=== PATIENT | male | born 1990 | race African-American/Black ===

== ENCOUNTER 2016-03-28 03:11 | Inpatient (IN) | payer SELFPAY ==
[2016-03-28] VITALS (9 sets, daily range): BP systolic 114–145; BP diastolic 52–73
[~2016-03-28] VITALS: Ht 190.5 cm; Wt 117.9 kg
[2016-03-28] MEDS ORDERED: NKM (03:20)
--- NOTE | 2016-03-28 03:41 | Emergency Room Report ---
History of Present Illness General Chief Complaint: Chest Pain Source: Patient Present Illness HPI This is a 25-year-old male with no past medical history. He presents with chief complaint of chest pain and syncope. Has been complaining of left-sided chest pain since Friday, about 3 days ago. No radiation the pain. Nothing made it better. Nothing made it worse. He has 2 episode of syncope. 2 days ago he stood up and felt pain and had a syncopal episode. No injury. 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 Did not feel palpitation or diaphoresis. [place] weak. Denies any drugs or alcohol. No family history of ACS or sudden . Allergies: Coded Allergies: No Known Allergies (Unverified , 03/28/16) Patient History Past Medical History: none, see triage record, old chart reviewed Past Surgical History: none Pertinent Family History: none Social History: Denies: smoking Immunizations: other Reviewed Nursing Documentation: PMH: Agreed, PSxH: Agreed Nursing Documentation-PMH Past Medical History: No Stated History Review of Systems Eye: Denies: blurred vision, eye pain ENT: Denies: ear pain, nose congestion, throat swelling Respiratory: Denies: cough, shortness of breath Cardiovascular: Reports: chest pain, syncope, Denies: palpitations Gastrointestinal: Denies: abdominal pain, diarrhea, nausea, vomiting Musculoskeletal: Denies: back pain, joint pain Skin: Denies: rash Neurological: Denies: headache, numbness Endocrine: Denies: increased thirst, increased urine Hematologic/Lymphatic: Denies: easy bruising All Other Systems: negative except mentioned in HPI Physical Exam Vital Signs Date Time Temp Pulse Resp B/P Pulse Ox O2 Delivery O2 Flow Rate FiO2 03/28/16 03:13 97.5 77 18 117/71 96 Room Air vitals normal Sp02 EP Interpretation: reviewed, normal General Appearance: well appearing, no apparent distress, alert Head: normocephalic, atraumatic Eyes: bilateral eye EOMI, bilateral eye PERRL ENT: hearing grossly normal, normal pharynx Neck: full range of motion, supple, no meningismus Respiratory: chest non-tender, lungs clear, normal breath sounds Cardiovascular #1: regular rate, rhythm, no murmur Gastrointestinal: normal bowel sounds, non tender, no mass, no organomegaly, no bruit, non-distended Musculoskeletal: back normal, gait/station normal, normal range of motion Psychiatric: mood/affect normal Skin: warm/dry Medical Decision Making Diagnostic Impression: Primary Impression: Chest pain Qualified Codes: R07.9 - Chest pain, unspecified Additional Impression: Syncope Qualified Codes: R55 - Syncope and collapse ER Course Patient present with chest pain and syncope. Pain has been ongoing for couple days. No evidence of ACS, PE, dissection. Syncope is concerning for possibility of arrhythmia. His been in a sinus rhythm here. Blood pressures been stable. We'll admit for further monitoring and cardiology consultation. Lab Results Impression labs normal EKG Diagnostic Results Rate: normal Rhythm: NSR ST Segments: no acute changes Rhythm Strip Diag. Results EP Interpretation: yes Rate: 73 Rhythm: NSR, no PVC's, no ectopy Chest X-Ray Diagnostic Results EP Interpretation: Yes Findings: no consolidation, no effusion, no pneumothorax, no acute cardiopulmonary disease Number of Views: 1 Last Vital Signs Date Time Temp Pulse Resp B/P Pulse Ox O2 Delivery O2 Flow Rate FiO2 03/28/16 03:13 97.5 77 18 117/71 96 Room Air Status: improved Disposition: ADMITTED INPATIENT Condition: Serious TRINH NICHOLAS M.D. Mar 28, 2016 03:41
[2016-03-28 03:42] LABS: APPEARANCE,URINE CLEAR; KETONES,URINE NEGATIVE (NEGATIVE); LEUKOCYTE ESTERASE ,URINE 1+ (NEGATIVE); NITRITE,URINE NEGATIVE (NEGATIVE); PH,URINE 6.5 (4.5-8.0); PROTEIN,URINE 2+ (NEGATIVE); UROBILINOGEN,URINE 1 MG/DL (0.0-1.0)
[2016-03-28 03:50] LABS: BASOPHILS % (AUTO) 0.6 % (0.0-2.0); EOSINOPHILS % (AUTO) 0.9 % (0.0-3.0); LYMPHOCYTES % (AUTO) 13.4 % (20.0-45.0); MEAN CORPUSCULAR HEMOGLOBIN 27.8 PG (27.0-31.0); MEAN CORPUSCULAR HGB CONC 32.8 G/DL (32.0-36.0); MEAN CORPUSCULAR VOLUME 85 FL (80-99); MEAN PLATELET VOLUME 11.2 FL (6.5-10.1); MONOCYTES % (AUTO) 6.8 % (1.0-10.0); NEUTROPHILS % (AUTO) 78.4 % (45.0-75.0); PLATELET COUNT 187 K/UL (150-450); RED BLOOD COUNT 5.69 M/UL (4.70-6.10); RED CELL DISTRIBUTION WIDTH 12.7 % (11.6-14.8)
[2016-03-28 03:52] LABS: BACTERIA,URINE FEW /HPF; RBC,URINE 15-20 /HPF (0 - 0); SQUAMOUS EPITHELIAL CELL,UR FEW /LPF (NONE/OCC); WBC,URINE 0-2 /HPF (0 - 0)
[2016-03-28 03:56] LABS: TROPONIN I < 0.30 ng/mL (<=0.30)
[2016-03-28 03:58] LABS: ALANINE AMINOTRANSFERASE 15 U/L (3-41); ANION GAP 14 (5-15); ASPARTATE AMINO TRANSFERASE 17 U/L (5-40); CARBON DIOXIDE 28 mEQ/L (20-30); CHLORIDE 99 mEQ/L (98-107); CREATININE 1.3 mg/dL (0.7-1.2); GLOMERULAR FILTRATION RATE > 60 mL/min (>60); HEMOLYSIS 3; POTASSIUM 4.5 mEQ/L (3.4-4.9); SODIUM 141 mEQ/L (135-145); TOTAL PROTEIN 7.3 g/dL (6.6-8.7)
[2016-03-28 04:08] LABS: CKMB 2.4 ng/mL (< 6.7)
[2016-03-28 10:15] LABS: TROPONIN I < 0.30 ng/mL (<=0.30)
--- NOTE | 2016-03-28 11:25 | History and Physical ---
History of Present Illness General Date patient seen: Mar 28, 2016 Time patient seen: 11:25 Reason for Hospitalization: Chest Pain Present Illness HPI 25 y/o male with no sig pmh who presents with chest pain and syncopal episode. Pt states that abt 2 days ago he had an episode of dizziness/lightheadedness while working in the [employer]. He did not sustain any head trauma. His friend helped him. He had LOC for a few seconds and afterwards he was not postictal. Then yesterday he had another episode of dizziness, but no LOC at that time. He was sitting at the time. He denies palpitations, SOB, chest pain during the incident. After the incident, he developed chest pain described as L- sided pressure like pain, constant. He denies f/c, n/v, abd pain, d/c, dysuria. Does smoke marijuana but denies other drugs. No tobacco or alcohol use. No family h/o early [place]. In ED, initial trop and EKG neg. Pt given ASA 325mg PO. Pt admitted to [facility] for further workup and cardiology evaluation. Today pt c/o persistent chest pain. No episodes of dizziness. Allergies: Coded Allergies: No Known Allergies (Unverified , 03/28/16) Medication History Scheduled No Known Medications* (NKM - No Known Medications*), 0 ., (Reported) Scheduled PRN Ibuprofen* (Motrin*), 600 MG ORAL Q8H PRN for For Pain Patient History History Provided By: Patient Healthcare decision maker Pt elects mother Antonietta Resuscitation status Full Code Advanced Directive on File Past Medical/Surgical History Past Medical/Surgical History: (1) No significant past medical history Family History Family History: No significant family history Social History Social History: (1) Marijuana smoker Review of Systems Constitutional: Reports: no symptoms Eye: Reports: no symptoms ENT: Reports: no symptoms Respiratory: Reports: no symptoms Cardiovascular: Reports: chest pain Gastrointestinal: Reports: no symptoms Genitourinary: Reports: no symptoms Musculoskeletal: Reports: no symptoms Skin: Reports: no symptoms Psychiatric: Reports: no symptoms Neurological: Reports: dizziness, syncope Endocrine: Reports: no symptoms Hematologic/Lymphatic: Reports: no symptoms All Other Systems: negative except mentioned in HPI Physical Exam Physical Exam Narrative General: alert, cooperative, no distress, appears stated age Head: normocephalic, without obvious abnormality, atraumatic Eyes: conjunctivae/corneas clear. PERRL, EOM's intact Throat: lips, mucosa, and tongue normal. MMM Neck: supple, symmetrical, trachea midline, and no JVD Lungs: clear to auscultation bilaterally Heart: regular rate and rhythm, S1, S2 normal, no murmur, click, rub or gallop Abdomen: soft, non-tender, non-distended, bowel sounds normal; no masses or organomegaly Extremities: extremities normal, atraumatic, no cyanosis or edema Pulses: 2+ and symmetric Skin: skin color, texture, turgor normal; no rashes or lesions Neurologic: grossly normal, no focal deficits Last 24 Hour Vital Signs Date Time Temp Pulse Resp B/P Pulse Ox O2 Delivery O2 Flow Rate FiO2 03/28/16 08:15 97.5 62 18 125/52 98 Room Air 03/28/16 07:45 68 03/28/16 07:25 98.3 78 20 128/73 100 Room Air 03/28/16 07:14 98.3 78 20 128/73 100 Room Air 03/28/16 06:02 98.5 75 21 133/70 100 Room Air 03/28/16 05:04 60 18 118/68 99 Room Air 03/28/16 04:30 69 22 119/58 100 Room Air 03/28/16 03:20 98.1 70 21 124/63 100 Room Air 03/28/16 03:20 70 21 Room Air 100 03/28/16 03:13 97.5 77 18 117/71 96 Room Air Laboratory Tests Test 03/28/16 03:23 03/28/16 03:30 03/28/16 09:30 Urine Color Yellow Urine Appearance Clear Urine pH 6.5 (4.5-8.0) Urine Specific [place] 1.015 (1.005-1.035) Urine Protein 2+ (NEGATIVE) H Urine Glucose (UA) Negative (NEGATIVE) Urine Ketones Negative (NEGATIVE) Urine Occult Blood 3+ (NEGATIVE) H Urine Nitrite Negative (NEGATIVE) Urine Bilirubin Negative (NEGATIVE) Urine Urobilinogen 1 MG/DL (0.0-1.0) H Urine Leukocyte Esterase 1+ (NEGATIVE) H Urine RBC 15-20 /HPF (0 - 0) H Urine WBC 0-2 /HPF (0 - 0) Urine Squamous Epithelial Cells Few /LPF (NONE/OCC) Urine Bacteria Few /HPF (NONE) White Blood Count 13.0 K/UL (4.8-10.8) H Red Blood Count 5.69 M/UL (4.70-6.10) Hemoglobin 15.8 G/DL (14.2-18.0) Hematocrit 48.2 % (42.0-52.0) Mean Corpuscular Volume 85 FL (80-99) Mean Corpuscular Hemoglobin 27.8 PG (27.0-31.0) Mean Corpuscular Hemoglobin Concent 32.8 G/DL (32.0-36.0) Red Cell Distribution Width 12.7 % (11.6-14.8) Platelet Count 187 K/UL (150-450) Mean Platelet Volume 11.2 FL (6.5-10.1) H Neutrophils (%) (Auto) 78.4 % (45.0-75.0) H Lymphocytes (%) (Auto) 13.4 % (20.0-45.0) L Monocytes (%) (Auto) 6.8 % (1.0-10.0) Eosinophils (%) (Auto) 0.9 % (0.0-3.0) Basophils (%) (Auto) 0.6 % (0.0-2.0) D-Dimer 249 ng/mL (<500) Sodium Level 141 mEQ/L (135-145) Potassium Level 4.5 mEQ/L (3.4-4.9) Chloride Level 99 mEQ/L (98-107) Carbon Dioxide Level 28 mEQ/L (20-30) Anion Gap 14 (5-15) Blood Urea Nitrogen 13 mg/dL (7-23) Creatinine 1.3 mg/dL (0.7-1.2) H Estimat Glomerular Filtration Rate > 60 mL/min (>60) Glucose Level 98 mg/dL (74-106) Calcium Level 10.0 mg/dL (8.6-10.2) Total Bilirubin 0.7 mg/dL (0.0-1.2) Aspartate Amino Transf (AST/SGOT) 17 U/L (5-40) Alanine Aminotransferase (ALT/SGPT) 15 U/L (3-41) Alkaline Phosphatase 46 U/L (40-129) Total Creatine Kinase 328 U/L (38-174) H Creatine Kinase MB 2.4 ng/mL (< 6.7) Creatine Kinase MB Relative Index 0.7 Troponin I < 0.30 ng/mL (<=0.30) < 0.30 ng/mL (<=0.30) Total Protein 7.3 g/dL (6.6-8.7) Albumin 4.9 g/dL (3.5-5.2) Globulin 2.4 g/dL Albumin/Globulin Ratio 2.0 (1.0-2.7) Height (Feet): 6 Height (Inches): 3.00 Weight (Pounds): 260 Assessment/Plan Problem List: (1) Chest pain Assessment & Plan: Atypical--not associated w/ activity/exertion and not relieved w/ rest. Possibly MSK vs GI vs anxiety ICD Codes: R07.9 - Chest pain, unspecified SNOMED: 82243211 Qualifiers: Qualified Codes: R07.9 - Chest pain, unspecified (2) Syncope Assessment & Plan: Possibly orthostatic 2/2 dehydration vs cardiac arrhythmia ICD Codes: R55 - Syncope and collapse SNOMED: 369766699 Qualifiers: Qualified Codes: R55 - Syncope and collapse (3) JENNY (acute kidney injury) Assessment & Plan: No known baseline. Possibly pre-renal in setting of dehydration ICD Codes: N17.9 - Acute kidney failure, unspecified SNOMED: 88747167 (4) Hematuria Assessment & Plan: U/A shows RBCs and blood. Possibly 2/2 UTI ICD Codes: R31.9 - Hematuria, unspecified SNOMED: 66518060 (5) Leukocytosis Assessment & Plan: Possibly 2/2 UTI? ICD Codes: D72.829 - Elevated white blood cell count, unspecified SNOMED: 312557950, 990534499 (6) Elevated CK ICD Codes: R74.8 - Abnormal levels of other serum enzymes SNOMED: 068803344 Status: stable Assessment/Plan - Admit to tele - Trend trop/EKG - Cardiology consulted - Check TTE - Check carotid duplex - Check B12, folate, TSH, RPR, HIV - Start mIVFs given JENNY and elevated CK - Will hold abx for now given pt HD stable - Check urine culture.--if positive will consider starting antibiotics though pt asymptomatic at this time - Consider renal U/S and renal consult if SCr does not improve w/ IVFs DVT Prophylaxis: early ambulation Code Status: Full Hospital Classification Declaration: Based on this initial evaluation, and depending on the patient's clinical course, I anticipate that this patient will require hospitalization for 2-3 days for chest pain and syncope eval, and close respiratory/hemodynamic monitoring. Disposition: Once the patient is stable to leave the hospital, I anticipate the patient will likely be discharged to the following environment: home I spent 70 minutes on this patient's case, and 37 minutes were dedicated to counseling and/or care coordination. Discussed with patient/family, nursing staff, SW/CM, cardiology regarding clinical status, treatment course, and disposition planning. D/w RN re plan of care. D/w pt extensively re plan of care Time of note may not reflect time of encounter. Advanced Care Planning Note Date of Discussion: 03/28/16 A [id number] discussion with the patient regarding the patient's advanced care planning took place during this hospitalization on the above date. The discussion included the explanation and discussion of advance directives and associated forms/documents, as well as the patient's current code status. We also discussed at length the patient's medical conditions (both acute and chronic), general prognosis, treatment options, and goals of care. The following summarizes the discussion: Pt wishes for full resuscitation measures Advance Care Planning/Goals of Care: - Will attempt to fill out an AD and/or POLST with the patient prior to discharge, if not already completed - Continue current evaluation and management of any acute and chronic medical issues - Will continue to support the patient/family - Will continue to discuss both short- and long-term goals of care DPOA-HC/Surrogate Decision Maker: Pt elects Antonietta perla Code Status: Full Code AD Forms/Documents Completed: Deferred A total of 31 minutes was spent on this discussion, including counseling, answering questions, and completing, if any, pertinent advanced care planning forms/documents. Vish Carreon M.D. Mar 28, 2016 11:25
--- NOTE | 2016-03-28 11:37 | Diagnostic Imaging Report ---
Indication: SYNCOPE Technique: One view of the chest Comparison: none Findings: Lungs and pleural spaces are clear. Heart size is normal. Impression: No acute process
[2016-03-28 12:21] LABS: THYROID STIMULATING HORMONE 2.31 uIU/mL (0.300-4.500)
[2016-03-28] MEDS ORDERED: 1/2 NS 1000ml IV ONE (15:40)
[2016-03-28 16:03] LABS: TROPONIN I < 0.30 ng/mL (<=0.30)
[2016-03-28] MEDS ORDERED: Morphine Sulfate 2mg/ml Inj IVP PRN (19:30)
[2016-03-28] MEDS ORDERED: Nitroglycerin Subl 0.4mg tab (Bottle Of 25) SL PRN (19:30)
--- NOTE | 2016-03-28 21:03 | Consultation ---
Consult Note Consult Note Cardiac EP/ Cardiology Full note dictated. #[id number] KITTY CONDE Mar 28, 2016 21:03
[2016-03-29 00:40] VITALS: BP 126/53
[2016-03-29 04:30] VITALS: BP 128/56
[2016-03-29 07:11] LABS: BASOPHILS % (AUTO) 0.7 % (0.0-2.0); EOSINOPHILS % (AUTO) 2.6 % (0.0-3.0); LYMPHOCYTES % (AUTO) 26.5 % (20.0-45.0); MEAN CORPUSCULAR HEMOGLOBIN 27.9 PG (27.0-31.0); MEAN CORPUSCULAR HGB CONC 32.6 G/DL (32.0-36.0); MEAN CORPUSCULAR VOLUME 86 FL (80-99); MEAN PLATELET VOLUME 12.4 FL (6.5-10.1); MONOCYTES % (AUTO) 8.6 % (1.0-10.0); NEUTROPHILS % (AUTO) 61.6 % (45.0-75.0); PLATELET COUNT 179 K/UL (150-450); RED BLOOD COUNT 5.77 M/UL (4.70-6.10); RED CELL DISTRIBUTION WIDTH 12.8 % (11.6-14.8); WHITE BLOOD COUNT 8.3 K/UL (4.8-10.8)
[2016-03-29 07:43] LABS: ANION GAP 16 (5-15); CALCIUM 9.7 mg/dL (8.6-10.2); CARBON DIOXIDE 24 mEQ/L (20-30); CHLORIDE 103 mEQ/L (98-107); CREATININE 1.3 mg/dL (0.7-1.2); GLOMERULAR FILTRATION RATE > 60 mL/min (>60); HEMOLYSIS 15; POTASSIUM 4.5 mEQ/L (3.4-4.9); SODIUM 143 mEQ/L (135-145)
[2016-03-29 07:53] LABS: PHOSPHORUS 4.1 mg/dL (2.5-4.8)
[2016-03-29 08:00] VITALS: BP 130/55
--- NOTE | 2016-03-29 11:16 | Discharge Summary ---
Discharge Summary Hospital Course Date of Admission Mar 28, 2016 at 04:36 Date of Discharge Pt left AMA on 03/29/16 Admitting Diagnosis chest pain, syncope HPI 25 y/o male with no sig pmh who presents with chest pain and syncopal episode. 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 He did not sustain any head trauma. His friend helped him. He had LOC for a few seconds and afterwards he was not postictal. Then yesterday he had another episode of dizziness, but no LOC at that time. He was sitting at the time. He denies palpitations, SOB, chest pain during the incident. After the incident, he developed chest pain described as L- sided pressure like pain, constant. He denies f/c, n/v, abd pain, d/c, dysuria. Does smoke marijuana but denies other drugs. No tobacco or alcohol use. No family h/o early [place]. In ED, initial trop and EKG neg. Pt given ASA 325mg PO. Consultations Cardiology Hospital Course Pt was admitted to [facility] and ruled out for ACS with serial trop/EKG. Cardiolgoy was consulted. TTE was ordered. Prior to completion of workup and review of results, pt left against medical advice. Discharge Condition Upon Discharge: stable Discharge Disposition Pt left AMA Discharge Diagnoses: (1) Chest pain (2) Marijuana smoker (3) Hematuria (4) Elevated CK (5) JENNY (acute kidney injury) (6) Leukocytosis Vish Carreon M.D. Mar 29, 2016 11:16
[2016-03-29] MEDS ORDERED: 1/2 NS 1000ml IV ONE (11:19)
--- NOTE | 2016-03-29 13:24 | Cardiology Report ---
APPROVED REPORT EXAM: Two-dimensional and M-mode echocardiogram with Doppler and color Doppler. INDICATION Chest Pain M-Mode DIMENSIONS IVSd1.8 (0.7-1.1cm)Left Atrium (MM)3.9 (1.6-4.0cm) LVDd5.4 (3.5-5.6cm)Aortic Root3.0 (2.0-3.7cm) PWd1.2 (0.7-1.1cm)Aortic Cusp Exc.1.6 (1.5-2.0cm) LVDs2.8 (2.5-4.0cm) PWs2.4 cm Normal left ventricular chamber size, systolic function and wall motion. Left ventricular ejection fraction estimated to be 65-70 %. Mild left ventricular hypertrophy. No evidence of pericardial fat or effusion. All other cardiac chamber sizes are within normal limits. Mild focal aortic valve sclerosis with adequate cusp excursion. Mildly thickened mitral valve leaflets with normal excursion. Mild mitral annulus and aortic root calcification. Pulmonic valve not well visualized. Normal tricuspid valve structure. IVC dilated at 1.9 cm with physiologic collapse. A color flow and spectral Doppler study was performed and revealed: No aortic regurgitation. Trace mitral regurgitation. Mitral inflow velocities indicates normal left ventricular diastolic function. Trace tricuspid regurgitation. Tricuspid systolic velocities suggests peak right ventricular systolic pressure of 21 mmHg. Trace pulmonic regurgitation present.
--- NOTE | 2016-03-30 12:41 | Diagnostic Imaging Report ---
APPROVED REPORT CPT Code: 81381 Vascular Symptoms Syncope CAROTID (BILATERAL) - Imaging reveals no significant plaque within the right and left extracranial carotid arteries. The Doppler spectral flow analysis is within normal limits throughout the extracranial carotid arteries bilaterally. VERTEBRAL- The vertebral arteries are within normal limits.
--- NOTE | 2016-03-30 12:41 | Diagnostic Imaging Report ---
APPROVED REPORT CPT Code: 78872 Present Symptoms Comments: Chest pain BILATERAL: Imaging reveals a patent deep venous system bilaterally. There is no evidence of thrombus within the femoral, popliteal or tibial segments. The greater saphenous veins are also within normal limits. Doppler indicates normal spontaneous flow within these segments.
--- NOTE | 2016-04-01 12:32 | Cardiology Report ---
APPROVED REPORT EKG Measurement Heart [id number] CO 148P65 [id number] Normal sinus rhythm Minimal voltage criteria for LVH, may be normal variant Nonspecific ST abnormality Abnormal ECG
--- NOTE | 2016-04-05 13:32 | Cardiology Report ---
APPROVED REPORT EKG Measurement Heart [id number] NC 170P67 [id number] [id number] Normal sinus rhythm Nonspecific intraventricular conduction delay Nonspecific ST abnormality Abnormal ECG
--- NOTE | 2016-04-06 00:29 | Discharge Summary 2 SIG ---
DATE OF ADMISSION: 03/28/2016 DATE OF DISCHARGE: 03/29/2016 SUPERVISOR HEADING: Leann Patel M.D. BRIEF HOSPITAL COURSE: The patient is a 25-year-old male with no significant past medical history presented with chest pain and syncopal episode. He stated that about two days ago, he had an episode of dizziness and lightheadedness, while working in the [employer]. He did not sustain any head trauma. He had loss of consciousness for a few seconds. Afterwards, he was not postictal. He had another episode day prior to admission, but no loss of consciousness at that time. He was sitting. After the incident, he developed chest pain. He admits to smoking marijuana, but denies other drugs. He was admitted to telemetry to monitor cardiac enzymes. Dr. Patel was consulted. Troponin has been negative. However, full treatment was not carried out as the patient signed out against medical advice. FINAL DIAGNOSES: 1. Chest pain. 2. Syncope. 3. Acute kidney injury. 4. Hematuria. 5. Leukocytosis, possibly secondary to urinary tract infection. 6. Elevated CK. 7. Noncompliance as the patient signed out against medical advice. Vish Carreon M.D. I have been assigned to dictate discharge summary on this account and I was not involved in the patient's management. Nicole Armijo N.P. DR: Gilbert JOB#: [id number] CC: STEPHANIE
--- NOTE | 2016-04-08 13:08 | Consultation ---
DATE OF CONSULTATION: CONSULTING PHYSICIAN: Leann Patel M.D. REQUESTING PHYSICIAN: Shauna Ortiz M.D. REASON FOR CONSULT: Chest pain and syncope. HISTORY OF PRESENT ILLNESS: The patient is a 25-year-old man with no previous history of cardiac disease who reports that since Friday, he has had intermittent and now constant substernal chest pain. He denies any alleviating or precipitating factors. The pain is nonexertional, related to movement or inspiration. He also reports that he has had two episodes of syncope since Friday. The first occurred while he was sitting in his kitchen. He felt lightheaded and then fainted landing on the floor. He had no injuries. 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 He was admitted for further treatment. He has no history of hypertension, diabetes, or arrhythmia. There is no family history of premature coronary artery disease, arrhythmias, or sudden . MEDICATIONS: At home, none. ALLERGIES: No known drug allergies. PAST MEDICAL HISTORY: As noted above. SOCIAL HISTORY: The patient smokes marijuana occasionally. He does not smoke cigarettes. He has no history of alcohol or drug abuse. PHYSICAL EXAMINATION: VITAL SIGNS: Blood pressure is 145/65, pulse 71, regular, respirations 18, and afebrile. GENERAL: Alert and well-developed male, in no acute distress. HEENT: Normocephalic and atraumatic. Pupils are equal, round, and reactive to light. Sclerae are anicteric. Oral mucosa are moist. NECK: Supple. There is no jugular venous distention. No carotid bruits. No thyromegaly. LUNGS: Clear to auscultation bilaterally. HEART: Regular S1 and S2 with no murmurs, rubs, S3, or S4. ABDOMEN: Soft and nontender. No palpable mass. EXTREMITIES: No cyanosis or clubbing. Trace left pedal edema (previous surgery on the left foot). LABORATORY AND DIAGNOSTIC DATA: Hemoglobin 15.8, white blood count 13,000; and platelets 187,000. Troponin less than 0.3 on admission and repeat x2. Sodium 141, potassium 4.5, chloride 99, bicarbonate 28, BUN 13, and creatinine 1.3. Human immunodeficiency virus is negative. EKG shows sinus bradycardia, rate of 59 beats per minute, left ventricular hypertrophy by voltage and ST changes consistent with early repolarization (no old EKG available for comparison). Chest x-ray shows no cardiomegaly, infiltrates, or effusions. ASSESSMENT AND RECOMMENDATIONS: The patient is a 25-year-old man, who presents with persistent chest pain and syncope. The cause of this chest pain is uncertain, however, it would appear not to be due to an acute coronary syndrome as he is ruled out for myocardial infarction with negative serial troponin levels despite ongoing chest pain and has no ischemic EKG changes. He may have pericarditis noncardiac cause for his symptoms. With regard to his syncope, this may be due to a vasovagal response, though cannot rule out an arrhythmia. His EKG is abnormal suggesting left ventricular hypertrophy. I would favor admission to the telemetry. We would do an echo to evaluate left ventricular function and valves. We will check orthostatic vital signs to rule out orthostatic hypotension. Further recommendations will be made based on his clinical course. Thank you for allowing me to participate in his care. Leann Patel M.D. DR: BECKIE JOB#: [id number] CC:
== END 2016-03-29 11:20 | disposition left against medical advice (07) | DRG 312 ==
LOC: EMR 03:42 → 2E 04:36 → EDBEDREQ 05:43 → 2E 07:58
DX: R55 Syncope and collapse (principal); N17.9 Acute kidney failure, unspecified; R07.89 Other chest pain; D72.829 Elevated white blood cell count, unspecified; R31.9 Hematuria, unspecified; R94.31 Abnormal electrocardiogram [ECG] [EKG]; R82.90 Unspecified abnormal findings in urine; Z91.19 Patient's noncompliance with other medical treatment and regimen
CPT/HCPCS: 36415; 71010; 80048; 80053; 80300; 81003; 82550; 82553; 82607; 82746; 83735; 84100; 84443; 84484; 85025; 85379; 86592; 86703; 87086; 93005; 93306; 93880; 93970

== ENCOUNTER 2016-04-08 00:32 | Emergency (ER) | payer SELFPAY ==
[~2016-04-08] VITALS: Ht 193 cm; Wt 113.4 kg
[~2016-04-08 00:32] MED LIST: NKM
[2016-04-08 00:50] VITALS: BP 114/56
[2016-04-08 01:35] LABS: BASOPHILS % (AUTO) 0.5 % (0.0-2.0); EOSINOPHILS % (AUTO) 1.3 % (0.0-3.0); LYMPHOCYTES % (AUTO) 27.2 % (20.0-45.0); MEAN CORPUSCULAR HEMOGLOBIN 28.6 PG (27.0-31.0); MEAN CORPUSCULAR HGB CONC 34.5 G/DL (32.0-36.0); MEAN CORPUSCULAR VOLUME 83 FL (80-99); MEAN PLATELET VOLUME 9.9 FL (6.5-10.1); MONOCYTES % (AUTO) 6.6 % (1.0-10.0); NEUTROPHILS % (AUTO) 64.5 % (45.0-75.0); PLATELET COUNT 213 K/UL (150-450); RED BLOOD COUNT 5.14 M/UL (4.70-6.10); RED CELL DISTRIBUTION WIDTH 12.1 % (11.6-14.8); WHITE BLOOD COUNT 11.3 K/UL (4.8-10.8)
[2016-04-08 01:55] LABS: ALANINE AMINOTRANSFERASE 8 U/L (3-41); ALBUMIN/GLOBULIN RATIO 1.3 (1.0-2.7); ANION GAP 14 (5-15); ASPARTATE AMINO TRANSFERASE 10 U/L (5-40); CALCIUM 9.1 mg/dL (8.6-10.2); CARBON DIOXIDE 27 mEQ/L (20-30); CHLORIDE 100 mEQ/L (98-107); CREATININE 1.2 mg/dL (0.7-1.2); GLOMERULAR FILTRATION RATE > 60 mL/min (>60); HEMOLYSIS 16; POTASSIUM 4.3 mEQ/L (3.4-4.9); SODIUM 141 mEQ/L (135-145); TOTAL PROTEIN 6.9 g/dL (6.6-8.7)
[2016-04-08 01:57] LABS: TROPONIN I < 0.30 ng/mL (<=0.30)
[2016-04-08 02:07] LABS: CKMB < 1.5 ng/mL (< 6.7)
[2016-04-08 02:50] VITALS: BP 118/58
[2016-04-08] MEDS ORDERED: Ketorolac 30mg Inj IV ONE (03:00)
[2016-04-08] MEDS ORDERED: IBUPROFEN600 MG ORAL (03:01)
[2016-04-08 03:10] VITALS: BP 118/58
--- NOTE | 2016-04-08 03:42 | Emergency Room Report ---
History of Present Illness General Chief Complaint: Chest Pain Source: Patient Present Illness HPI 25-year-old male presents ED complaining of chest pain stating that symptoms started tonight while at rest. Pain is left-sided, sharp, 8 at 10, nonradiating. No aggravating relieving factors. Denies shortness of breath. Admits to smoking marijuana. Denies any drug use. Patient states he was seen here approximately 10 days ago for similar presentation. Was admitted to the hospital but left AMA. No other aggravating or relieving factors. Denies any other associated symptoms Allergies: Coded Allergies: No Known Allergies (Unverified , 03/28/16) Patient History Past Medical History: asthma Past Surgical History: none Pertinent Family History: none Social History: Reports: drug use, Denies: alcohol use, smoking Immunizations: UTD Reviewed Nursing Documentation: PMH: Agreed, PSxH: Agreed Nursing Documentation-PMH Past Medical History: No Stated History Hx Cardiac Problems: No Hx Asthma: Yes Hx Cancer: No Hx Gastrointestinal Problems: No Hx Neurological Problems: No Review of Systems All Other Systems: negative except mentioned in HPI Physical Exam Vital Signs Date Time Temp Pulse Resp B/P Pulse Ox O2 Delivery O2 Flow Rate FiO2 04/08/16 00:41 97.3 59 16 113/75 98 Room Air Sp02 EP Interpretation: reviewed, normal General Appearance: no apparent distress, alert, GCS 15, non-toxic Head: normocephalic, atraumatic Eyes: bilateral eye PERRL, bilateral eye normal inspection ENT: hearing grossly normal, normal pharynx, no angioedema, normal voice Neck: full range of motion, supple/symm/no masses Respiratory: chest non-tender, lungs clear, normal breath sounds, speaking full sentences Cardiovascular #1: regular rate, rhythm, no edema Cardiovascular #2: 2+ carotid (R), 2+ carotid (L), 2+ radial (R), 2+ radial (L) , 2+ dorsalis pedis (R), 2+ dorsalis pedis (L) Gastrointestinal: normal bowel sounds, non tender, soft, non-distended, no guarding, no rebound Rectal: deferred Genitourinary: normal inspection, no CVA tenderness Musculoskeletal: back normal, gait/station normal, normal range of motion, non- tender Neurologic: alert, oriented x3, responsive, motor strength/tone normal, sensory intact, speech normal Psychiatric: judgement/insight normal, memory normal, mood/affect normal, no suicidal/homicidal ideation Reflexes: 3+ bicep (R), 3+ bicep (L), 3+ tricep (R), 3+ tricep (L), 3+ knee (R) , 3+ knee (L) Skin: normal color, no rash, warm/dry, well hydrated Lymphatic: no adenopathy Medical Decision Making Diagnostic Impression: Primary Impression: Chest pain Qualified Codes: R07.9 - Chest pain, unspecified ER Course Hospital Course 25-year-old M presents ED complaining of chest pain Differential diagnoses include: Rib fracture, NV/unstable angina, contusion, muscle strain Clinical course Patient placed on stretcher. After initial history and physical I ordered labs , EKG, chest x-ray. labs reviewed- all electrolytes normal, troponins negative, no leukocytosis, hemoglobin/hematocrit stable EKG - sinus bradycardia, early repolarization Chest x-ray-no cardiomegaly, no rib fracture, no pneumothorax, no acute process I reviewed EKG from prior visit. Unchanged. I performed bedside sono which showed no evidence of pericardial effusion and good heart wall motion I reviewed records from last admission. Patient had troponin x3 which was negative. Patient had echo which showed an ejection fraction and normal heart wall motion. Patient left AMA prior to cardiology evaluation however the impression was that the pain is likely muscular CTA chest negative for PE or dissection I agree with assessment that pain is likely be cardiac. given patient's age and negative workup thus far I do not believe patient requires admission. Patient should however followup with front office java developer as outpatient Given Toradol in ED I. I feel this is a highly complex case requiring extensive working including EKG/Rhythm strip, Xray/CT/US, Blood/urine lab work, repeat exams while in ED, and administration of strong opiates/narcotics for pain control, admission to hospital or close patient follow up. Diagnosis - chest pain Stable and discharged to home with Rx Motrin. Instructed to followup with PMD. Return to ED if symptoms recur or worsen Labs Test 04/08/16 01:21 White Blood Count 11.3 K/UL (4.8-10.8) Red Blood Count 5.14 M/UL (4.70-6.10) Hemoglobin 14.7 G/DL (14.2-18.0) Hematocrit 42.6 % (42.0-52.0) Mean Corpuscular Volume 83 FL (80-99) Mean Corpuscular Hemoglobin 28.6 PG (27.0-31.0) Mean Corpuscular Hemoglobin Concent 34.5 G/DL (32.0-36.0) Red Cell Distribution Width 12.1 % (11.6-14.8) Platelet Count 213 K/UL (150-450) Mean Platelet Volume 9.9 FL (6.5-10.1) Neutrophils (%) (Auto) 64.5 % (45.0-75.0) Lymphocytes (%) (Auto) 27.2 % (20.0-45.0) Monocytes (%) (Auto) 6.6 % (1.0-10.0) Eosinophils (%) (Auto) 1.3 % (0.0-3.0) Basophils (%) (Auto) 0.5 % (0.0-2.0) D-Dimer 353 ng/mL (<500) Sodium Level 141 mEQ/L (135-145) Potassium Level 4.3 mEQ/L (3.4-4.9) Chloride Level 100 mEQ/L (98-107) Carbon Dioxide Level 27 mEQ/L (20-30) Anion Gap 14 (5-15) Blood Urea Nitrogen 15 mg/dL (7-23) Creatinine 1.2 mg/dL (0.7-1.2) Estimat Glomerular Filtration Rate > 60 mL/min (>60) Glucose Level 103 mg/dL (74-106) Calcium Level 9.1 mg/dL (8.6-10.2) Total Bilirubin 0.3 mg/dL (0.0-1.2) Aspartate Amino Transf (AST/SGOT) 10 U/L (5-40) Alanine Aminotransferase (ALT/SGPT) 8 U/L (3-41) Alkaline Phosphatase 46 U/L (40-129) Total Creatine Kinase 115 U/L (38-174) Creatine Kinase MB < 1.5 ng/mL (< 6.7) Creatine Kinase MB Relative Index 1.3 Troponin I < 0.30 ng/mL (<=0.30) Pro-B-Type Natriuretic Peptide 62 pg/mL (0-125) Total Protein 6.9 g/dL (6.6-8.7) Albumin 4.0 g/dL (3.5-5.2) Globulin 2.9 g/dL Albumin/Globulin Ratio 1.3 (1.0-2.7) EKG Diagnostic Results Rate: bradycardiac Rhythm: NSR ST Segments: other - early repol ASA given to the pt in ED: No Rhythm Strip Diag. Results EP Interpretation: yes Rhythm: NSR, no PVC's, no ectopy Chest X-Ray Diagnostic Results EP Interpretation: Yes Findings: no consolidation, no effusion, no pneumothorax, no acute cardiopulmonary disease Number of Views: 1 CT/MRI/US Diagnostic Results CT/MRI/US Diagnostic Results : Imaging Test Ordered: CTA Chest Impression no PE, no other acute process Last Vital Signs Date Time Temp Pulse Resp B/P Pulse Ox O2 Delivery O2 Flow Rate FiO2 04/08/16 00:50 49 19 Room Air 04/08/16 00:50 97.3 114/56 97 Status: improved Disposition: HOME, SELF-CARE Condition: Stable Scripts Ibuprofen* (MOTRIN*) 600 Mg Tablet 600 MG ORAL Q8H Y for For Pain, #30 TAB 0 Refills Prov: TOMÁS GENAO M.D. 04/08/16 Referrals: NOT CHOSEN IPA/,REFERRING (PCP) Patient Instructions: Nonspecific Chest Pain TOMÁS GENAO M.D. Apr 08, 2016 03:42
--- NOTE | 2016-04-08 08:51 | Diagnostic Imaging Report ---
Indication: Chest pain Technique: Continuous helical transaxial imaging of the chest was obtained from the thoracic inlet to the upper abdomen during rapid intravenous contrast administration. Arterial phase of enhancement obtained. Coronal 2-D reformats were also obtained and maximum intensity projection images in multiple planes. Study obtained in a Siemens sensation [address] Total Dose length Product (DLP): [address] Dose Index Volume (CTDIvol): 13, 63, 36 mGy Comparison: None Findings: The pulmonary artery is well opacified and shows no filling defects although opacification of the pulmonary artery is suboptimal. Minimal patchy groundglass pulmonary opacities noted at the lung bases nonspecific. There is no adenopathy, pleural or pericardial effusions are identified. The aortic dissection or aneurysm identified within the chest. Visualized part of the upper abdomen is unremarkable. Impression: No evidence of pulmonary embolus. Aorta unremarkable. Minimal patchy basilar groundglass opacities, nonspecific. [facility] has communicated the preliminary results to the Emergency Department. Their findings are largely concordant with this report. The CT scanner at [facility] is accredited by the [employer] and the scans are performed using protocols designed to limit radiation exposure to as low as reasonably achievable to attain images of sufficient resolution adequate for diagnostic evaluation.
--- NOTE | 2016-04-08 10:00 | Cardiology Report ---
APPROVED REPORT EKG Measurement Heart [id number] Sinus bradycardia Nonspecific intraventricular conduction delay ST elevation, probably due to early repolarization Borderline ECG
--- NOTE | 2016-04-08 13:28 | Diagnostic Imaging Report ---
Indication: Chest Pain Comparison: 03/28/16 A single view chest radiograph was obtained. Findings: Cardiomediastinal appearance is within normal limits for age. Pulmonary vascularity is appropriate. The diaphragmatic contour is smooth and costophrenic angles are sharp. No pleural effusions are identified. The bones are unremarkable. Impression: No acute findings
== END 2016-04-08 03:15 | disposition home or self-care (01) ==
LOC: EMR 01:00
DX: R07.9 Chest pain, unspecified (principal); J45.909 Unspecified asthma, uncomplicated
CPT/HCPCS: 36415; 71010; 71275; 80053; 82550; 82553; 83880; 84484; 85025; 85379; 93005; 96360; 96374; 99284; J1885; J7040; Q9967

== ENCOUNTER 2016-05-31 03:26 | Emergency (ER) | payer MEDICAID ==
[~2016-05-31] VITALS: Ht 193 cm; Wt 113.4 kg
[~2016-05-31 03:26] MED LIST changes: +IBUPROFEN600 MG ORAL
[2016-05-31 03:50] VITALS: BP 118/64
[2016-05-31 04:09] LABS: BASOPHILS % (AUTO) 0.8 % (0.0-2.0); EOSINOPHILS % (AUTO) 4.3 % (0.0-3.0); MEAN CORPUSCULAR HEMOGLOBIN 27.4 PG (27.0-31.0); MEAN CORPUSCULAR HGB CONC 32.6 G/DL (32.0-36.0); MEAN CORPUSCULAR VOLUME 84 FL (80-99); MONOCYTES % (AUTO) 7.4 % (1.0-10.0); NEUTROPHILS % (AUTO) 53.5 % (45.0-75.0); PLATELET COUNT 207 K/UL (150-450); RED BLOOD COUNT 5.13 M/UL (4.70-6.10); RED CELL DISTRIBUTION WIDTH 12.5 % (11.6-14.8); WHITE BLOOD COUNT 9.9 K/UL (4.8-10.8)
--- NOTE | 2016-05-31 04:20 | Emergency Room Report ---
History of Present Illness General Chief Complaint: Chest Pain Source: Patient Present Illness HPI 26-year-old male presents ED for evaluation. Patient states she's been having chest pain for 4 days. Pain is sternal, 6/10, sharp, nonradiating. Denies shortness of breath. Denies booking or drug use. States he has passed out 3 times since. Patient states he feels okay at this time. Patient states that he has been evaluated here in the past for same presentation. Was admitted in March and left AMA. Had one other ER visit and was cleared. Patient states he was admitted at [facility] recently and is waiting for followup. Denies any dizziness or weakness. No other aggravating or relieving factors. Denies any other symptoms Allergies: Coded Allergies: No Known Allergies (Unverified , 03/28/16) Patient History Past Medical History: asthma Past Surgical History: none Pertinent Family History: none Social History: Denies: alcohol use, drug use, smoking Immunizations: UTD Reviewed Nursing Documentation: PMH: Agreed, PSxH: Agreed Nursing Documentation-PMH Past Medical History: No Stated History Hx Cardiac Problems: No Hx Asthma: Yes Hx Cancer: No Hx Gastrointestinal Problems: No Hx Neurological Problems: No Review of Systems All Other Systems: negative except mentioned in HPI Physical Exam Vital Signs Date Time Temp Pulse Resp B/P Pulse Ox O2 Delivery O2 Flow Rate FiO2 05/31/16 03:30 97.5 58 18 130/67 98 Room Air Sp02 EP Interpretation: reviewed, normal General Appearance: no apparent distress, alert, GCS 15, non-toxic, obese Head: normocephalic, atraumatic Eyes: bilateral eye PERRL, bilateral eye normal inspection ENT: hearing grossly normal, normal pharynx, no angioedema, normal voice Neck: full range of motion, supple/symm/no masses Respiratory: chest non-tender, lungs clear, normal breath sounds, speaking full sentences Cardiovascular #1: regular rate, rhythm, no edema Cardiovascular #2: 2+ carotid (R), 2+ carotid (L), 2+ radial (R), 2+ radial (L) , 2+ dorsalis pedis (R), 2+ dorsalis pedis (L) Gastrointestinal: normal bowel sounds, non tender, soft, non-distended, no guarding, no rebound Rectal: deferred Genitourinary: normal inspection, no CVA tenderness Musculoskeletal: back normal, gait/station normal, normal range of motion, non- tender Neurologic: alert, oriented x3, responsive, motor strength/tone normal, sensory intact, speech normal Psychiatric: judgement/insight normal, memory normal, mood/affect normal, no suicidal/homicidal ideation Reflexes: 3+ bicep (R), 3+ bicep (L), 3+ tricep (R), 3+ tricep (L), 3+ knee (R) , 3+ knee (L) Skin: normal color, no rash, warm/dry, well hydrated Lymphatic: no adenopathy Medical Decision Making Diagnostic Impression: Primary Impression: Chest pain Qualified Codes: R07.9 - Chest pain, unspecified ER Course Hospital Course 26-year-old M presents ED complaining of chest pain, syncopal episode Differential diagnoses include: Rib fracture, RI/unstable angina, contusion, muscle strain Clinical course Patient placed on stretcher. After initial history and physical I ordered labs , EKG, chest x-ray. labs reviewed- all electrolytes normal, troponins negative, no leukocytosis, hemoglobin/hematocrit stable EKG - sinus edith, repolarization changes, LVH Chest x-ray-no cardiomegaly, no rib fracture, no pneumothorax, no acute process patient was here in March for similar complaint. EKG at the time also shows sinus bradycardia with repolarization changes. Echo shows normal function with good ejection fraction. No regurgitation. Patient left AMA. Patient was then seen by myself and had extensive workup including CTA chest. Patient was subsequently discharged. Pain is likely muscular Patient states he does have followup at [facility]. I recommended patient continue followup at [facility] I. I feel this is a highly complex case requiring extensive working including EKG/Rhythm strip, Xray/CT/US, Blood/urine lab work, repeat exams while in ED, and administration of strong opiates/narcotics for pain control, admission to hospital or close patient follow up. Diagnosis - chest pain Stable and discharged to home. Instructed to followup with PMD. Return to ED if symptoms recur or worsen Labs Test 05/31/16 03:45 05/31/16 04:47 White Blood Count 9.9 K/UL (4.8-10.8) Red Blood Count 5.13 M/UL (4.70-6.10) Hemoglobin 14.1 G/DL (14.2-18.0) Hematocrit 43.1 % (42.0-52.0) Mean Corpuscular Volume 84 FL (80-99) Mean Corpuscular Hemoglobin 27.4 PG (27.0-31.0) Mean Corpuscular Hemoglobin Concent 32.6 G/DL (32.0-36.0) Red Cell Distribution Width 12.5 % (11.6-14.8) Platelet Count 207 K/UL (150-450) Mean Platelet Volume 9.0 FL (6.5-10.1) Neutrophils (%) (Auto) 53.5 % (45.0-75.0) Lymphocytes (%) (Auto) 34.0 % (20.0-45.0) Monocytes (%) (Auto) 7.4 % (1.0-10.0) Eosinophils (%) (Auto) 4.3 % (0.0-3.0) Basophils (%) (Auto) 0.8 % (0.0-2.0) Sodium Level 142 mEQ/L (135-145) Potassium Level 4.2 mEQ/L (3.4-4.9) Chloride Level 105 mEQ/L (98-107) Carbon Dioxide Level 24 mEQ/L (20-30) Anion Gap 13 (5-15) Blood Urea Nitrogen 16 mg/dL (7-23) Creatinine 1.0 mg/dL (0.7-1.2) Estimat Glomerular Filtration Rate > 60 mL/min (>60) Glucose Level 107 mg/dL (74-106) Calcium Level 9.0 mg/dL (8.6-10.2) Total Bilirubin 0.4 mg/dL (0.0-1.2) Aspartate Amino Transf (AST/SGOT) 14 U/L (5-40) Alanine Aminotransferase (ALT/SGPT) 9 U/L (3-41) Alkaline Phosphatase 46 U/L (40-129) Total Creatine Kinase 157 U/L (38-174) Creatine Kinase MB < 1.5 ng/mL (< 6.7) Troponin I < 0.30 ng/mL (<=0.30) Total Protein 6.8 g/dL (6.6-8.7) Albumin 3.8 g/dL (3.5-5.2) Globulin 3.0 g/dL Albumin/Globulin Ratio 1.2 (1.0-2.7) Urine Opiates Screen Negative (NEGATIVE) Urine Barbiturates Screen Negative (NEGATIVE) Phencyclidine (PCP) Screen Negative (NEGATIVE) Urine Amphetamines Screen Negative (NEGATIVE) Urine Benzodiazepines Screen Negative (NEGATIVE) Urine Cocaine Screen Negative (NEGATIVE) Urine Marijuana (THC) Screen Positive (NEGATIVE) EKG Diagnostic Results Rate: bradycardiac Rhythm: NSR ST Segments: other - early repolarization. LVH ASA given to the pt in ED: No Rhythm Strip Diag. Results EP Interpretation: yes Rhythm: NSR, no PVC's, no ectopy Chest X-Ray Diagnostic Results EP Interpretation: Yes Findings: no consolidation, no effusion, no pneumothorax, no acute cardiopulmonary disease Number of Views: 1 Last Vital Signs Date Time Temp Pulse Resp B/P Pulse Ox O2 Delivery O2 Flow Rate FiO2 05/31/16 03:50 55 16 118/64 98 Room Air 05/31/16 03:30 97.5 Status: improved Disposition: HOME, SELF-CARE Condition: Stable Referrals: NOT CHOSEN IPA/,REFERRING (PCP) TOMÁS GENAO M.D. May 31, 2016 04:20
[2016-05-31 04:48] VITALS: BP 127/68
[2016-05-31 04:50] LABS: TROPONIN I < 0.30 ng/mL (<=0.30)
[2016-05-31 04:51] LABS: CKMB < 1.5 ng/mL (< 6.7)
[2016-05-31 05:31] LABS: ALANINE AMINOTRANSFERASE 9 U/L (3-41); ALBUMIN/GLOBULIN RATIO 1.2 (1.0-2.7); ANION GAP 13 (5-15); ASPARTATE AMINO TRANSFERASE 14 U/L (5-40); CARBON DIOXIDE 24 mEQ/L (20-30); CHLORIDE 105 mEQ/L (98-107); GLOMERULAR FILTRATION RATE > 60 mL/min (>60); HEMOLYSIS 6; POTASSIUM 4.2 mEQ/L (3.4-4.9); SODIUM 142 mEQ/L (135-145); TOTAL PROTEIN 6.8 g/dL (6.6-8.7)
[2016-05-31 06:18] VITALS: BP 130/65
--- NOTE | 2016-05-31 16:24 | Diagnostic Imaging Report ---
Indication: Chest pain, syncope Technique: Single portable AP view of the chest. Findings: Comparison: 04/08/2016 Inspiratory effort has improved. Cardiac silhouette remains upper limits of normal in size. Old, healed fracture of the left fourth rib again noted. Old unfused fracture fragment versus accessory ossification center distal end right clavicle again noted. The bones and extra pulmonary soft tissues, cardiomediastinal silhouette, pulmonary vasculature and parenchyma, and pleural surfaces remain otherwise unremarkable. IMPRESSION: No evidence of acute cardiopulmonary disease, unchanged Stable chronic changes as described.
--- NOTE | 2016-06-03 13:44 | Cardiology Report ---
APPROVED REPORT EKG Measurement Heart [id number] OR [id number] Sinus bradycardia Nonspecific intraventricular block Abnormal ECG
== END 2016-05-31 06:22 | disposition home or self-care (01) ==
LOC: EMR 03:41
DX: R07.9 Chest pain, unspecified (principal); J45.909 Unspecified asthma, uncomplicated
CPT/HCPCS: 36415; 71010; 80053; 80300; 82550; 82553; 84484; 85025; 93005; 96360

== ENCOUNTER 2016-07-04 02:13 | Emergency (ER) | payer MEDICAID ==
[~2016-07-04] VITALS: Ht 193 cm; Wt 113.4 kg
[2016-07-04] MEDS ORDERED: Norco 5mg/325mg tab ONE (02:40)
[2016-07-04 02:45] VITALS: BP 126/69
[2016-07-04] MEDS ORDERED: Norco 5mg/325mg tab ORAL ONE (02:45)
[2016-07-04] MEDS ORDERED: IBUPROFEN600 MG ORAL (02:45)
--- NOTE | 2016-07-04 02:45 | Emergency Room Report ---
History of Present Illness General Chief Complaint: Multiple Trauma/Fall Source: Patient Present Illness HPI Is a 26-year-old male with no past medical history. He recently has a left anterior cruciate ligament tear for which he is on crutches and and knee immobilizer. He slipped and fell in the kitchen tonight. He hit the back of his head and had a loss of consciousness for less than a minute. This occur acutely 2 hours ago. He complaining of dizziness and pain on the back of his head. No nausea no vomiting. No other injury. Focal deficit. Allergies: Coded Allergies: No Known Allergies (Unverified , 07/04/16) Patient History Past Medical History: see triage record, old chart reviewed Past Surgical History: other Pertinent Family History: none Social History: Denies: smoking Immunizations: other Reviewed Nursing Documentation: PMH: Agreed, PSxH: Agreed Nursing Documentation-PMH Hx Cardiac Problems: No Hx Asthma: No Hx Cancer: No Hx Gastrointestinal Problems: No Hx Neurological Problems: No - Torn left ACL 05/2016 Review of Systems Eye: Denies: blurred vision, eye pain ENT: Denies: ear pain, nose congestion, throat swelling Respiratory: Denies: cough, shortness of breath Cardiovascular: Denies: chest pain, palpitations Gastrointestinal: Denies: abdominal pain, diarrhea, nausea, vomiting Musculoskeletal: Denies: back pain, joint pain Skin: Denies: rash Neurological: Reports: headache, Denies: numbness Endocrine: Denies: increased thirst, increased urine Hematologic/Lymphatic: Denies: easy bruising All Other Systems: negative except mentioned in HPI Physical Exam Vital Signs Date Time Temp Pulse Resp B/P Pulse Ox O2 Delivery O2 Flow Rate FiO2 07/04/16 02:23 97.5 84 16 126/69 98 Room Air vitals normal Sp02 EP Interpretation: reviewed, normal General Appearance: well appearing, no apparent distress, alert Head: normocephalic, atraumatic, other - Tender to palpation over the occipital area. No large hematoma. No skull depression. Eyes: bilateral eye EOMI, bilateral eye PERRL ENT: hearing grossly normal, normal pharynx Neck: full range of motion, supple, no meningismus Respiratory: chest non-tender, lungs clear, normal breath sounds Cardiovascular #1: regular rate, rhythm, no murmur Gastrointestinal: normal bowel sounds, non tender, no mass, no organomegaly, no bruit, non-distended Musculoskeletal: back normal, other - Left leg in knee immobilizer Psychiatric: mood/affect normal Skin: warm/dry Medical Decision Making Diagnostic Impression: Primary Impression: Head injury, acute, with loss of consciousness Qualified Codes: S06.9X1A - Unspecified intracranial injury with loss of consciousness of 30 minutes or less, initial encounter ER Course Patient presents with a head injury with loss of consciousness. No evidence of fracture or bleed. We'll discharge home. Last Vital Signs Date Time Temp Pulse Resp B/P Pulse Ox O2 Delivery O2 Flow Rate FiO2 07/04/16 02:23 97.5 84 16 126/69 98 Room Air Status: improved Disposition: HOME, SELF-CARE Condition: Stable Scripts Ibuprofen* (MOTRIN*) 600 Mg Tablet 600 MG ORAL THREE TIMES A DAY, #30 TAB 0 Refills Prov: TRINH NICHOLAS M.D. 07/04/16 Referrals: NOT CHOSEN IPA/,REFERRING (PCP) Additional Instructions: Followup with your Dr. in 7 days. Return if symptom worsen. Avoid strenuous activity. TRINH NICHOLAS M.D. July 04, 2016 02:45
[2016-07-04 03:50] VITALS: BP 124/73
[2016-07-04 03:52] VITALS: BP 124/73
--- NOTE | 2016-07-04 08:47 | Diagnostic Imaging Report ---
Indications: Head trauma, pain Technique: Continuous helical CT imaging of the brain was performed with automatic exposure control on a Siemens sensation [address] scanner. Axial and coronal images were reconstructed at 5 mm slice thickness and interval. CTDI volume(s): 70 mGy Total DLP: 1481 mGy-cm Findings: Comparison: None. Intracranial anatomy is unremarkable. No evidence of mass or hemorrhage, other attenuation abnormality, mass effect, midline shift, hydrocephalus or increased intracranial pressure. Bone window images are unremarkable. Mucoperiosteal thickening paranasal sinuses with complete opacification of right maxillary sinus, apparent large polypoid soft tissue density in left maxillary sinus. Bilateral mastoid air cells clear. IMPRESSION: No evidence of acute injury or other acute pathology extensive paranasal sinusitis with apparent left maxillary polyp versus retention cyst. This correlates with [employer] preliminary report. The CT scanner at [facility] is accredited by the [employer] and the scans are performed using protocols designed to limit radiation exposure to as low as reasonably achievable to attain images of sufficient resolution adequate for diagnostic evaluation.
== END 2016-07-04 03:52 | disposition home or self-care (01) ==
LOC: EMR 02:41
DX: S06.9X1A Unspecified intracranial injury with loss of consciousness of 30 minutes or less, initial encounter (principal); S83.512A Sprain of anterior cruciate ligament of left knee, initial encounter; W01.10XA Fall on same level from slipping, tripping and stumbling with subsequent striking against unspecified object, initial encounter; Y93.9 Activity, unspecified; Y99.9 Unspecified external cause status; R51 Headache
CPT/HCPCS: 70450; 99284